=== PATIENT | female | born 1960 ===

== ENCOUNTER → 2023-10-02 12:49 | Outpatient (CLI) | payer OTHER ==
[2023-10-02 13:38] LABS: HEMATOCRIT 39.6 % (36.0-45.00); HEMOGLOBIN 13.3 g/dL (12.0-15.00); MEAN CELL VOLUME 90.2 fL (80.00-100.00); MEAN CORPUSCULAR HEMOGLOBIN 30.3 pg (27.00-32.0); MEAN CORPUSCULAR HGB CONC 33.5 g/dl (32.0-36.0); PLATELET COUNT 209 K/uL (150-450); RED BLOOD COUNT 4.38 M/uL (4.00-6.00)
[2023-10-02 13:43] LABS: PH,URINE 6.5 (5.0-8.0); URINE APPEARANCE Clear; URINE BILIRRUBIN Negative (NEGATIVE); URINE BLOOD Negative; URINE COLOR Yellow; URINE GLUCOSE Negative (NEGATIVE); URINE KETONE 15 (NEGATIVE); URINE LEUKOCYTE Trace; URINE NITRATE Negative; URINE PROTEIN Trace (NEGATIVE)
[2023-10-02 13:44] LABS: URINE BACTERIA 46.6 uL (0.0-1933); URINE EPITHELIAL CELLS 9.4 uL (0.0-38.8); URINE RBC 3.2 uL (0.0-20.8); URINE WBC 15.1 uL (0.0-23.2)
[2023-10-02 13:48] LABS: URINE CAST 0.91 uL (0.0-1.40)
[2023-10-02 14:03] LABS: INR 1.04; PARTIAL THROMBOPLASTIN TIME 28.8 SECONDS (22.0-34.0); PROTHROMBIN TIME 10.9 SECONDS (9.0-11.5)
[2023-10-02 14:13] LABS: BILIRUBIN TOTAL 0.88 mg/dL (0.3-1.2); CALCIUM 9.4 mg/dL (8.5-10.1); CREATININE SERUM 0.74 mg/dL (0.55-1.02); GFR 79.52; GLOBULINA 3.2 G/DL (2.4-3.5); POTASSIUM 3.5 mEq/L (3.5-5.1); TOTAL PROTEIN 7.2 gm/dL (6.4-8.2)
[2023-10-02 14:27] LABS: COL ADP 80 SECONDS (56-102); COL EPI >300 SECONDS (82-175)
== END | disposition home or self-care (01) ==
LOC: RAD 12:49
PROVIDERS: ATTEND Orthopaedic Surgery
DX: Z76.89 Persons encountering health services in other specified circumstances (principal); I12.0 Hypertensive chronic kidney disease with stage 5 chronic kidney disease or end stage renal disease

== ENCOUNTER → 2023-10-02 | Outpatient (CLI) | payer OTHER | END | disposition home or self-care (01) | LOC: TOM 14:19 | PROVIDERS: ATTEND Orthopaedic Surgery | DX: S42.231A 3-part fracture of surgical neck of right humerus, initial encounter for closed fracture (principal); S82.872A Displaced pilon fracture of left tibia, initial encounter for closed fracture ==

== ENCOUNTER 2023-10-12 08:11 | Outpatient (CLI) | payer OTHER ==
[2023-10-12 09:21] LABS: COL EPI 92 SECONDS (82-175)
== END 2023-10-12 08:12 | disposition home or self-care (01) ==
LOC: LAB 08:11
PROVIDERS: ATTEND Orthopaedic Surgery
DX: Z22.322 Carrier or suspected carrier of Methicillin resistant Staphylococcus aureus (principal); D68.8 Other specified coagulation defects

== ENCOUNTER 2023-10-16 09:33 | Inpatient (IN) | payer OTHER ==
[2023-10-12 15:09] VITALS: BP 100/66
[~2023-10-16] VITALS: Ht 165.1 cm; Wt 61.2 kg
[2023-10-16] MEDS ORDERED: CEFAZOLIN SODIUM 1,000 MG VIAL ONE (10:16)
[2023-10-16] MEDS ORDERED: CEFTRIAXONE SODIUM 2,000 MG VIAL ONE (11:36)
[2023-10-16] MEDS ORDERED: METOCLOPRAMIDE HCL 5 MG/ML VIAL ONE (11:38)
[2023-10-16] MEDS ORDERED: BUPIVACAINE HCL/MPF 0.5% 30ML VIAL ONE (12:25)
[2023-10-16] MEDS ORDERED: CIPROFLOXACIN IN 5 % DEXTROSE 400 MG/200 ML PIGGYBAG IV ONE ×2 (12:25→20:11)
[2023-10-16] MEDS ORDERED: DIPHENHYDRAMINE HCL 50 MG/ML VIAL 1ML ONE (12:26)
[2023-10-16] MEDS ORDERED: METOCLOPRAMIDE HCL 5 MG/ML VIAL IV ONE (12:30)
[2023-10-16] MEDS ORDERED: PROMETHAZINE HCL 50 MG/ML AMPUL IM PRN (16:45)
[2023-10-16] MEDS ORDERED: TRAMADOL HCL 50 MG TABLET PO PRN (16:45)
[2023-10-16] MEDS ORDERED: MEPERIDINE HCL/PF 50 MG/ML VIAL IM PRN (16:45)
[2023-10-16] MEDS ORDERED: ONDANSETRON HCL 2 MG/ML VIAL IV PRN (16:45)
[2023-10-16] MEDS ORDERED: SODIUM CHLORIDE 0.45 % 1,000 ML IV SCH (16:45)
[2023-10-16] MEDS ORDERED: ONDANSETRON 4 MG TAB.RAPDIS PO PRN (16:45)
[2023-10-16] MEDS ORDERED: PANTOPRAZOLE SODIUM 40 MG TABLET.DR PO SCH (16:48)
[2023-10-16] MEDS ORDERED: CEFAZOLIN SODIUM 1,000 MG VIAL IV SCH (17:00)
[2023-10-16] MEDS ORDERED: CELECOXIB 200 MG CAPSULE PO SCH (17:00)
[2023-10-16] MEDS ORDERED: ACETAMINOPHEN 325 MG TABLET PO SCH (17:00)
[2023-10-16 19:45] VITALS: BP 100/59; O2SAT 95
[2023-10-16] MEDS ORDERED: CIPROFLOXACIN IN 5 % DEXTROSE 200 ML IV SCH (21:00)
[2023-10-16 22:12] VITALS: BP 100/59
[2023-10-16 23:45] VITALS: BP 80/41; O2SAT 100
[2023-10-17] VITALS: BP 102/74; O2SAT 100
[2023-10-17 02:38] VITALS: BP 98/52; O2SAT 96
[2023-10-17 06:47] LABS: HEMATOCRIT 32.6 % (36.0-45.00); HEMOGLOBIN 11.2 g/dL (12.0-15.00); MEAN CELL VOLUME 90.7 fL (80.00-100.00); MEAN CORPUSCULAR HEMOGLOBIN 31.1 pg (27.00-32.0); MEAN CORPUSCULAR HGB CONC 34.3 g/dl (32.0-36.0); PLATELET COUNT 219 K/uL (150-450)
[2023-10-17] MEDS ORDERED: RIVAROXABAN 10 MG TAB PO SCH (09:00)
[2023-10-17 09:27] VITALS: BP 104/60; O2SAT 99
[2023-10-17 16:52] VITALS: BP 125/58; O2SAT 99
[2023-10-18] VITALS: BP 131/61; O2SAT 98
[2023-10-18 06:54] LABS: HEMATOCRIT 32.3 % (36.0-45.00); HEMOGLOBIN 11.1 g/dL (12.0-15.00); MEAN CELL VOLUME 90.1 fL (80.00-100.00); MEAN CORPUSCULAR HEMOGLOBIN 30.9 pg (27.00-32.0); MEAN CORPUSCULAR HGB CONC 34.3 g/dl (32.0-36.0); PLATELET COUNT 201 K/uL (150-450); RED BLOOD COUNT 3.58 M/uL (4.00-6.00); RED CELL DISTRIBUTION WIDTH 14.2 % (11.5-14.5)
[2023-10-18 08:47] VITALS: BP 135/64; O2SAT 98
[2023-10-18] MEDS ORDERED: SENNA/DOCUSATE SODIUM 1 TAB TABLET PO SCH (09:00)
[2023-10-18 16:00] VITALS: BP 99/56; O2SAT 99
== END 2023-10-18 20:30 | disposition home or self-care (01) | DRG 494 ==
LOC: CIR.AMB 09:33 → SURG 18:47
PROVIDERS: ADMIT Orthopaedic Surgery; ATTEND Orthopaedic Surgery
PROC: 0QSL04Z Reposition Right Tarsal with Internal Fixation Device, Open Approach (ICD-10-PCS; 2023-10-16)
PROC: 0MQ Bursae and Ligaments, Repair (ICD-10-PCS; 2023-10-16)
PROC: 0QSG04Z Reposition Right Tibia with Internal Fixation Device, Open Approach (ICD-10-PCS; principal; 2023-10-16 12:30)
DX: S82.871A Displaced pilon fracture of right tibia, initial encounter for closed fracture (principal); S92.101A Unspecified fracture of right talus, initial encounter for closed fracture

== ENCOUNTER 2023-10-26 09:24 | Outpatient (CLI) | payer OTHER | END 2023-10-26 09:32 | disposition home or self-care (01) | LOC: RAD 09:24 | PROVIDERS: ATTEND Orthopaedic Surgery | DX: S42.231A 3-part fracture of surgical neck of right humerus, initial encounter for closed fracture (principal) ==

== ENCOUNTER 2023-11-09 09:38 | Outpatient (CLI) | payer OTHER | END 2023-11-09 09:49 | disposition home or self-care (01) | LOC: RAD 09:38 | PROVIDERS: ATTEND Orthopaedic Surgery | DX: S42.231D 3-part fracture of surgical neck of right humerus, subsequent encounter for fracture with routine healing (principal); S82.871D Displaced pilon fracture of right tibia, subsequent encounter for closed fracture with routine healing ==

== ENCOUNTER 2023-12-07 09:11 | Outpatient (CLI) | payer OTHER | END 2023-12-07 09:21 | disposition home or self-care (01) | LOC: RAD 09:11 | PROVIDERS: ATTEND Orthopaedic Surgery | DX: S82.871D Displaced pilon fracture of right tibia, subsequent encounter for closed fracture with routine healing (principal) ==

== ENCOUNTER 2024-01-25 11:52 | Outpatient (CLI) | payer OTHER | END 2024-01-25 12:01 | disposition home or self-care (01) | LOC: RAD 11:52 | PROVIDERS: ATTEND Orthopaedic Surgery | DX: S82.871D Displaced pilon fracture of right tibia, subsequent encounter for closed fracture with routine healing (principal); S42.231D 3-part fracture of surgical neck of right humerus, subsequent encounter for fracture with routine healing ==